=== PATIENT | female | born 1970 | race Caucasian/White ===

== ENCOUNTER 2021-06-24 16:18 | Outpatient (CLI) | payer BC | END 2021-06-24 16:19 | disposition home or self-care (01) | LOC: CSHLAB 16:18 | PROVIDERS: ATTEND Obstetrics & Gynecology | DX: Z01.818 Encounter for other preprocedural examination (principal) | CPT/HCPCS: 80048; 84703; 85027; 86850; 86900; 86901; 93005; 93010; U0003; U0005 ==

== ENCOUNTER 2021-06-29 08:03 | Day surgery (SDC) | payer BC ==
[2021-06-24 17:47] LABS: Hemoglobin 14.2 g/dL (12.0-15.5); Mean Corpuscular HGB CONC 33.2 g/dL (32.0-36.0); Mean Corpuscular Hemoglobin 29.5 pg (27.0-33.0); Mean Corpuscular Volume 88.8 fl (81.6-98.3); Mean Platelet Volume 10.6 fl (7.4-10.4); Platelet Count 376 10x3/uL (150-450); Red Blood Cell (RBC) Count 4.82 10x6/uL (3.90-5.03); White Blood Cell (WBC) Count 11.6 10x3/uL (3.5-10.5)
[2021-06-24 17:56] LABS: BHCG - Serum Negative (NEGATIVE); Pregs Control Background? CLEAR/WHITE (CLR/WHITE); Pregs Control Bar Appear? YES (CONTROL BAR)
[2021-06-24 17:59] LABS: Anion Gap 16 mmol/L (10-20); BUN (Urea Nitrogen) 15 mg/dL (9.8-20.1); Calc. Creatinine Clearance 0 mL/min (70-130); Calcium 9.7 mg/dL (7.8-10.44); Carbon Dioxide 27 mmol/L (22-29); Chloride 100 mmol/L (98-107); Glucose 78 mg/dL (70-105); Sodium 139 mmol/L (136-145)
[2021-06-25 16:27] LABS: SARS-CoV-2 PCR by NAA Not Detected (NotDetected)
[2021-06-27 14:46] VITALS: BMI 38.7
[~2021-06-29 08:03] MED LIST: CeleCOXIB 100 MG CAP ONE; Famotidine/PF 20 mg/2ml Vial ONE; Gabapentin 300 MG CAP ONE; Lidocaine 1% MPF 2 ML VIAL ONE
[2021-06-29] MEDS ORDERED: EPINEPHrine 1 MG/ML AMP ONE (09:17)
[2021-06-29] MEDS ORDERED: Bupivacaine PF 0.5% 30 ML VIAL ONE (09:18)
[2021-06-29] MEDS ORDERED: Rocuronium Bromide 10 MG/ML (10ML VIAL) ONE (09:21)
[2021-06-29] MEDS ORDERED: Ondansetron PF 4 MG/2 ML Vial ONE (09:21)
[2021-06-29] MEDS ORDERED: Dexamethasone 20 MG/5 ML VIAL ONE (09:21)
[2021-06-29] MEDS ORDERED: Ketorolac Tromethamine 30 MG/ML VIAL ONE (09:21)
[2021-06-29] MEDS ORDERED: Midazolam HCl 2 mg/2 ml Vial ONE (09:21)
[2021-06-29] MEDS ORDERED: PROPOFOL 20 ML ONE (09:21)
[2021-06-29] MEDS ORDERED: Fentanyl 250 MCG/5 ML VIAL ONE (09:21)
[2021-06-29] MEDS ORDERED: Lidocaine 1% PF 5 ML VIAL ONE (09:21)
[2021-06-29] MEDS ORDERED: Glycopyrrolate 0.2 MG/ML 5 ML SYRINGE ONE (09:21)
[2021-06-29] MEDS ORDERED: Methylene Blue 50 MG/10 ML AMPUL ONE (09:23)
[2021-06-29] MEDS ORDERED: Meperidine HCl/PF 25 MG/ML VIAL ONE (11:30)
== END 2021-06-29 13:50 | disposition home or self-care (01) ==
LOC: CSHSDC 08:03
PROVIDERS: ATTEND Obstetrics & Gynecology
PROC: 0UT74ZZ Resection of Bilateral Fallopian Tubes, Percutaneous Endoscopic Approach (ICD-10-PCS; principal; 2021-06-29)
PROC: 0UT24ZZ Resection of Bilateral Ovaries, Percutaneous Endoscopic Approach (ICD-10-PCS; principal; 2021-06-29)
PROC: 0UT94ZZ Resection of Uterus, Percutaneous Endoscopic Approach (ICD-10-PCS; principal; 2021-06-29)
DX: D25.9 Leiomyoma of uterus, unspecified (principal); N80.0 Endometriosis of uterus; N88.8 Other specified noninflammatory disorders of cervix uteri; N72 Inflammatory disease of cervix uteri; N83.02 Follicular cyst of left ovary; N83.8 Other noninflammatory disorders of ovary, fallopian tube and broad ligament; K66.0 Peritoneal adhesions (postprocedural) (postinfection); E78.5 Hyperlipidemia, unspecified; I10 Essential (primary) hypertension; F17.200 Nicotine dependence, unspecified, uncomplicated; E66.9 Obesity, unspecified; Z68.38 Body mass index [BMI] 38.0-38.9, adult; Z79.82 Long term (current) use of aspirin; Z79.899 Other long term (current) drug therapy
CPT/HCPCS: 80048; 84703; 85027; 86850; 86900; 86901; 88307; C1776; J0171; J0690; J1100; J1885; J2175; J2250; J2405; J2704; J3010; Q9968; S0020; S0028; U0003; U0005